=== PATIENT | female | born 1985 | race Caucasian/White ===

== ENCOUNTER 2017-05-08 15:32 | Observation (INO) | payer OTHER ==
[~2017-05-08] VITALS: Ht 157.5 cm; Wt 88.9 kg
[2017-05-08 16:20] VITALS: BP 107/67
== END 2017-05-08 18:30 | disposition home or self-care (01) ==
LOC: MLD 15:32
PROVIDERS: ADMIT Obstetrics & Gynecology; ATTEND Obstetrics & Gynecology
DX: O62.9 Abnormality of forces of labor, unspecified (principal); O26.893 Other specified pregnancy related conditions, third trimester; N93.9 Abnormal uterine and vaginal bleeding, unspecified; Z3A.35 35 weeks gestation of pregnancy
CPT/HCPCS: 76805; G0378; Q0092

== ENCOUNTER 2017-05-09 22:25 | Inpatient (IN) | payer OTHER ==
[~2017-05-09] VITALS: Ht 154.9 cm; Wt 88.9 kg
[2017-05-09] MEDS ORDERED: LACTATED RINGERS 1,000 ML IV SCH (22:51)
[2017-05-09] MEDS ORDERED: OXYTOCIN 20 UNITS/LR PREMIX 1,000 ML IV SCH (22:55)
[2017-05-09] MEDS ORDERED: AMPICILLIN 2,000 MG in NACL 0.9% MINI-BAG PLUS 100 ML IV SCH (22:55)
[2017-05-09] MEDS ORDERED: NALBUPHINE HYDROCHLORIDE 10 MG/ML VIAL IVP PRN (22:55)
[2017-05-09] MEDS ORDERED: PROMETHAZINE 25 MG/ML VIAL IVP PRN (22:55)
[2017-05-09] MEDS ORDERED: OXYTOCIN 10 UNITS/ML VIAL IM SCH (22:55)
[2017-05-09] MEDS ORDERED: ROPIVACAINE 0.2%/NS PREMIX 250 ML EPI ONE (23:18)
[2017-05-09] MEDS ORDERED: AMPICILLIN 2,000 MG VIAL ONE (23:24)
[2017-05-09 23:33] LABS: BASOPHILS # (AUTO) 0.1 K/uL (0.00-0.22); BASOPHILS % (AUTO) 0.8 % (0.0-2.0); EOSINOPHILS # (AUTO) 0.3 K/uL (0-0.4); EOSINOPHILS % (AUTO) 1.7 % (0.0-4.0); HEMATOCRIT 36.6 % (36-48); HEMOGLOBIN 11.7 g/dL (12.0-16.0); LYMPHOCYTES # (AUTO) 1.6 K/uL (2.5-16.5); LYMPHOCYTES % (AUTO) 10.2 % (20.5-51.1); MEAN CORPUSCULAR HEMOGLOBIN 27 pg (27-31); MEAN CORPUSCULAR HGB CONC 32 g/dL (33-37); MEAN CORPUSCULAR VOLUME 83 fL (80-94); MONOCYTES # (AUTO) 0.4 K/uL (0.8-1.0); MONOCYTES % (AUTO) 2.4 % (1.7-9.3); NEUTROPHILS # (AUTO) 13.1 K/uL (1.8-7.7); NEUTROPHILS % (AUTO) 84.9 % (42.2-75.2); PLATELET COUNT (AUTO) 497 K/uL (140-450); RED CELL DISTRIBUTION WIDTH 15.1 % (11.6-13.7); WHITE BLOOD COUNT (AUTO) 15.5 K/uL (4.8-10.8)
[2017-05-09 23:58] LABS: APPEARANCE,URINE SL CLOUDY (CLEAR); BILIRUBIN,URINE NEGATIVE (NEGATIVE); BLOOD, URINE 1+ (NEGATIVE); COLOR,URINE YELLOW (YELLOW); LEUKOCYTE ESTERASE ,URINE 2+ (NEGATIVE); NITRITE, URINE NEGATIVE (NEGATIVE); PROTEIN,URINE NEGATIVE (NEGATIVE); UGLUCOSE NEGATIVE (NEGATIVE); UROBILINOGEN,URINE 0.2 EU/dL (0.2 - 1)
[2017-05-10] MEDS ORDERED: AMPICILLIN 1,000 MG in NACL 0.9% MINI-BAG PLUS 50 ML IV SCH ×2
[2017-05-10 00:58] LABS: BACTERIA,URINE 4+ /HPF (None Seen); WBC,URINE 16-25 (MOD) /HPF (0-5)
[2017-05-10 02:19] VITALS: BP 108/72
[2017-05-10] MEDS ORDERED: FERR-193 PO (02:25)
[2017-05-10] MEDS ORDERED: PREN-546 PO (02:25)
[2017-05-10] MEDS ORDERED: AMPICILLIN 1,000 MG VIAL ONE (03:22)
[2017-05-10] MEDS ORDERED: OXYTOCIN 20 UNITS/LR PREMIX 1,000 ML IV ONE (06:50)
[2017-05-10] MEDS ORDERED: OXYTOCIN 10 UNITS/ML VIAL ONE (06:51)
[2017-05-10] MEDS ORDERED: oxyCODONE/APAP 5/325 MG 1 TAB TAB PO PRN (08:30)
[2017-05-10] MEDS ORDERED: WITCH HAZEL 40 PAD PACKAGE TP PRN (08:30)
[2017-05-10] MEDS ORDERED: METHYLERGONOVINE 0.2 MG TAB PO PRN (08:30)
[2017-05-10] MEDS ORDERED: BISACODYL 10 MG SUPP RC PRN (08:30)
[2017-05-10] MEDS ORDERED: BENZOCAINE/MENTHOL 20%-0.5% 60 GM CAN TP PRN (08:30)
[2017-05-10] MEDS ORDERED: HYDROcodone/APAP 5/325 MG 1 TAB TAB PO PRN (08:30)
[2017-05-10] MEDS ORDERED: METHYLERGONOVINE 0.2 MG/ML AMP IM PRN (08:30)
[2017-05-10] MEDS ORDERED: OXYTOCIN 10 UNITS/ML VIAL IM PRN (08:30)
[2017-05-10] MEDS ORDERED: SODIUM PHOSPHATE 118 ML ENEM RC PRN (08:30)
[2017-05-10] MEDS ORDERED: TEMAZEPAM 15 MG CAP PO PRN (08:30)
[2017-05-10] MEDS ORDERED: MEASLES, MUMPS, AND RUBELLA 1 VIAL SQVAC PRN (08:30)
--- NOTE | 2017-05-10 09:40 | NUR ---
PATIENT HAS BEEN SCREENED AND CATEGORIZED LOW NUTRITION RISK. PATIENT WILL BE SEEN WITHIN 7 DAYS OF ADMISSION. 05/16/[address]
[2017-05-10] MEDS ORDERED: OXYTOCIN 10 UNITS/ML VIAL IM ONE (10:21)
[2017-05-10] MEDS ORDERED: DOCUSATE SOD/SENNA 50/8.6 MG 1 TAB PO SCH (21:00)
[2017-05-11 08:07] LABS: HEMOGLOBIN 10.1 g/dL (12.0-16.0)
[2017-05-11] MEDS ORDERED: IBUP-1842 PO (15:51)
[2017-05-11] MEDS ORDERED: DOCUSATE SOD/SENNA 50/8.6 MG 1 TAB PO SCH (21:00)
== END 2017-05-11 21:33 | disposition home or self-care (01) | DRG 560 ==
LOC: OBSVTOIN 22:25 → MLD 22:25 → MFCC 05-10 16:00
PROVIDERS: ADMIT Obstetrics & Gynecology; ATTEND Obstetrics & Gynecology
PROC: 00HU33Z Insertion of Infusion Device into Spinal Canal, Percutaneous Approach (ICD-10-PCS; 2017-05-09)
PROC: 3E0R3CZ (ICD-10-PCS; 2017-05-09)
PROC: 10E0XZZ Delivery of Products of Conception, External Approach (ICD-10-PCS; principal; 2017-05-10)
PROC: 10907ZC Drainage of Amniotic Fluid, Therapeutic from Products of Conception, Via Natural or Artificial Opening (ICD-10-PCS; 2017-05-10)
PROC: 0HQ9XZZ Repair Perineum Skin, External Approach (ICD-10-PCS; 2017-05-10)
PROC: 3E0234Z Introduction of Serum, Toxoid and Vaccine into Muscle, Percutaneous Approach (ICD-10-PCS; 2017-05-11)
DX: O99.284 Endocrine, nutritional and metabolic diseases complicating childbirth (principal); E07.9 Disorder of thyroid, unspecified; O70.0 First degree perineal laceration during delivery; Z23 Encounter for immunization; Z37.0 Single live birth; Z3A.37 37 weeks gestation of pregnancy
CPT/HCPCS: 36415; 51702; 59409; 81001; 85018; 85025; 86592; 86762; 86886; 86900; 86901; 87086; 87186; 87340; 90715; J0290; J2590; J2795; J7120

== ENCOUNTER 2018-01-28 15:50 | Emergency (ER) | payer OTHER ==
[~2018-01-28] VITALS: Ht 162.6 cm; Wt 87.5 kg
[~2018-01-28 15:50] MED LIST: FERR-193 PO; IBUP-1842 PO; PREN-546 PO
[2018-01-28 15:58] VITALS: BP 159/91
--- NOTE | 2018-01-28 16:02 | NUR ---
PT AMBULATED TO [facility]
--- NOTE | 2018-01-28 16:03 | NUR ---
32/F BIB FAMILY C/O LEFT ANKLE PAIN; TRIP AND FELL ON ASTROTURF TODAY AT 1230. SKIN IS PINK/WARM/DRY; L ANKLE SLIGHTLY SWOLLEN. AAOX4 ; AMB WITH W/C AT THIS TIME. LUNGS CLEAR BL. PATIENT STATES PAIN OF 10/10 AT THIS TIME.
--- NOTE | 2018-01-28 16:17 | NUR ---
Patient being evaluated by DR MERINO at bedside.
--- NOTE | 2018-01-28 16:29 | NUR ---
Crutches dispensed. Taught proper use BY EMT MYLA, patient returned demo.
--- NOTE | 2018-01-28 16:44 | NUR ---
Patient being reevaluated by DR MERINO at bedside.
[2018-01-28 16:48] VITALS: BP 113/79
--- NOTE | 2018-01-28 16:48 | NUR ---
Patient discharged with v/s stable. Written and verbal after care instructions given and explained. Patient alert, oriented and verbalized understanding of instructions. Wheel Chair Assisted with to car. All questions addressed prior to discharge. ID band removed. Patient advised to follow up with PMD. Rx of NAPROSYN given. Patient educated on indication of medication including possible reaction and side effects. Opportunity to ask questions provided and answered.
== END 2018-01-28 16:48 | disposition home or self-care (01) ==
LOC: MED 15:50
DX: S93.402A Sprain of unspecified ligament of left ankle, initial encounter (principal); W18.30XA Fall on same level, unspecified, initial encounter; Y93.89 Activity, other specified; Y92.89 Other specified places as the place of occurrence of the external cause; Y99.8 Other external cause status
CPT/HCPCS: 73610; 99284

== ENCOUNTER 2022-06-08 23:25 | Emergency (ER) | payer OTHER ==
[~2022-06-08] VITALS: Ht 162.6 cm; Wt 100.7 kg
[~2022-06-08 23:25] MED LIST changes: +FERR-15 PO; -FERR-193 PO
[2022-06-08 23:33] VITALS: BP 167/85
--- NOTE | 2022-06-08 23:43 | NUR ---
PT AMB TO BED 04
[2022-06-08] MEDS ORDERED: lisinopriL 20 MG TAB PO ONE (23:45)
--- NOTE | 2022-06-08 23:45 | NUR ---
RECEIVED IN BED 4 WITH C/O OF HEADACHE ALL OF A SUDDEN WHEN GETTING OUT OF BED WITH NUMB HANDS. IS AWKE, ALERT AND ORIENTED WITH SKIN WARM AND DRY
[2022-06-09 00:01] LABS: BASOPHILS % (AUTO) 0.4 % (0.0-2.0); EOSINOPHILS # (AUTO) 0.1 K/uL (0-0.4); EOSINOPHILS % (AUTO) 0.6 % (0.0-4.0); HEMATOCRIT 39.2 % (36-48); HEMOGLOBIN 12.8 g/dL (12.0-16.0); LYMPHOCYTES # (AUTO) 3.7 K/uL (2.5-16.5); MEAN CORPUSCULAR HEMOGLOBIN 27 pg (27-31); MEAN CORPUSCULAR HGB CONC 33 g/dL (33-37); MONOCYTES # (AUTO) 0.9 K/uL (0.8-1.0); NEUTROPHILS # (AUTO) 8.1 K/uL (1.8-7.7); PLATELET COUNT (AUTO) 313 K/uL (140-450); RED BLOOD CELL COUNT(AUTO) 4.73 MIL/uL (4.20-5.40); RED CELL DISTRIBUTION WIDTH 13.3 % (11.6-13.7); WHITE BLOOD COUNT (AUTO) 12.9 K/uL (4.8-10.8)
[2022-06-09 00:13] LABS: ALBUMIN 3.7 g/dL (3.4-5.0); ANION GAP 11.3 (8-16); CARBON DIOXIDE 28.2 mmol/L (21-32); CREATININE 0.7 mg/dL (0.6-1.3); POTASSIUM 3.5 mmol/L (3.5-5.1); TOTAL BILIRUBIN 0.2 mg/dL (0.0-1.0)
[2022-06-09 01:01] LABS: APPEARANCE,URINE CLEAR (CLEAR); BILIRUBIN,URINE NEGATIVE (NEGATIVE); BLOOD, URINE NEGATIVE (NEGATIVE); COLOR,URINE YELLOW (YELLOW); LEUKOCYTE ESTERASE ,URINE NEGATIVE (NEGATIVE); NITRITE, URINE NEGATIVE (NEGATIVE); UGLUCOSE NEGATIVE (NEGATIVE)
[2022-06-09 01:10] LABS: RBC,URINE 0-5 /HPF (0-5); WBC,URINE 0-5 /HPF (0-5)
[2022-06-09 01:11] LABS: URINE AMORPHOUS URATE 1+ /HPF (None Seen)
[2022-06-09] MEDS ORDERED: HYDR-2853 PO (01:22)
[2022-06-09 01:23] VITALS: BP 167/85
--- NOTE | 2022-06-09 01:23 | NUR ---
DISCHARGED PER DR MERINO
== END 2022-06-09 01:23 | disposition home or self-care (01) ==
LOC: MED 23:25
DX: I10 Essential (primary) hypertension (principal); R51.9 Headache, unspecified; E11.9 Type 2 diabetes mellitus without complications; Z79.4 Long term (current) use of insulin; Z79.899 Other long term (current) drug therapy
CPT/HCPCS: 36415; 80053; 81001; 85025; 99283

== ENCOUNTER 2022-08-25 16:12 | Emergency (ER) | payer OTHER ==
[~2022-08-25] VITALS: Ht 160 cm; Wt 53.1 kg
[~2022-08-25 16:12] MED LIST changes: +HYDR-2853 PO
[2022-08-25 16:19] VITALS: BP 94/72
--- NOTE | 2022-08-25 16:25 | NUR ---
PT AMBULATED TO ER BED 6
--- NOTE | 2022-08-25 17:36 | NUR ---
37 YO FEMALE ARRIVED BY HERSELF CO GENERAL WEAKNESS, NUMGNESS/TINGLING IN HANDS, TENSION IN NECK, PRESSURE IN CHEST AND SHORTNESS OF BREATH. STATES SX STARTED ABOUT AN HOUR BEFORE ARRIVAL. PT DENIES PAIN, DENIES N/V/D. HX: HTN NKA
--- NOTE | 2022-08-25 17:48 | NUR ---
XRAY AT BEDSIDE
[2022-08-25 18:16] LABS: BASOPHILS # (AUTO) 0.1 K/uL (0.00-0.22); BASOPHILS % (AUTO) 0.5 % (0.0-2.0); EOSINOPHILS # (AUTO) 0.1 K/uL (0-0.4); EOSINOPHILS % (AUTO) 0.4 % (0.0-4.0); HEMATOCRIT 38.5 % (36-48); HEMOGLOBIN 12.6 g/dL (12.0-16.0); LYMPHOCYTES # (AUTO) 1.9 K/uL (2.5-16.5); LYMPHOCYTES % (AUTO) 13.5 % (20.5-51.1); MEAN CORPUSCULAR HEMOGLOBIN 28 pg (27-31); MEAN CORPUSCULAR HGB CONC 33 g/dL (33-37); MEAN CORPUSCULAR VOLUME 84.2 fL (80-94); MONOCYTES # (AUTO) 0.7 K/uL (0.8-1.0); MONOCYTES % (AUTO) 5.1 % (1.7-9.3); NEUTROPHILS # (AUTO) 11.1 K/uL (1.8-7.7); NEUTROPHILS % (AUTO) 80.5 % (42.2-75.2); PLATELET COUNT (AUTO) 315 K/uL (140-450); RED BLOOD CELL COUNT(AUTO) 4.57 MIL/uL (4.20-5.40); RED CELL DISTRIBUTION WIDTH 13.4 % (11.6-13.7); WHITE BLOOD COUNT (AUTO) 13.9 K/uL (4.8-10.8)
[2022-08-25 18:43] LABS: ALBUMIN 3.5 g/dL (3.4-5.0); ANION GAP 11.1 (8-16); ASPARTATE AMINOTRANSFERASE 12 U/L (15-37); CARBON DIOXIDE 27.6 mmol/L (21-32); CHLORIDE 106 mmol/L (98-107); CREATININE 0.7 mg/dL (0.6-1.3); GFR ARICAN-AMERICAN 122 mL/min (>90); GLUCOSE 123 mg/dL (74-106); POTASSIUM 3.7 mmol/L (3.5-5.1); SODIUM SERUM 141 mmol/L (136-145); TOTAL BILIRUBIN 0.2 mg/dL (0.0-1.0); UREA NITROGEN, BLOOD 11 mg/dL (7-18)
--- NOTE | 2022-08-25 19:17 | NUR ---
REPORT GIVEN TO ISIDRO HUTTON . TRANSFER OF CARE AT THIS TIME
--- NOTE | 2022-08-25 20:14 | NUR ---
pt is awake and alert. denies pain at this time. all needs met. bed locked in lowest position, side rails x2 for safety
[2022-08-25 20:55] VITALS: BP 108/71
--- NOTE | 2022-08-25 20:55 | NUR ---
Patient discharged with v/s stable. Written and verbal after care instructions given and explained. Patient verbalized understanding. Ambulatory with steady gait. All questions addressed prior to discharge. Advised to follow up with PMD.
== END 2022-08-25 20:55 | disposition home or self-care (01) ==
LOC: MED 16:12
DX: R07.89 Other chest pain (principal); R53.1 Weakness; E11.9 Type 2 diabetes mellitus without complications; I10 Essential (primary) hypertension; Z79.899 Other long term (current) drug therapy; Z79.1 Long term (current) use of non-steroidal anti-inflammatories (NSAID)
CPT/HCPCS: 36415; 71045; 80053; 81002; 81025; 84484; 85025; 93005; 99285; Q0092